=== PATIENT | male | born 1975 | race Two or more races ===

== ENCOUNTER 2016-12-07 13:44 | Emergency (ER) | payer OTHER ==
[~2016-12-07] VITALS: Ht 175.3 cm; Wt 102.1 kg
[2016-12-07 13:52] VITALS: BP 160/111
[2016-12-07] MEDS ORDERED: fentaNYL PF VIAL 100 MCG/2 ML VIAL IV PRN (14:30)
[2016-12-07 14:32] LABS: BASO # 0.1 x10^3/uL (0.0-0.2); BASO % 1 % (0-3); EOS % 0 % (0-3); HEMOGLOBIN 14.6 g/dL (13.0-17.5); LYMPH # 2.2 x10^3/uL (1.0-4.8); LYMPH % 31 % (24-48); MEAN CORPUSCULAR HEMOGLOBIN 31 pg (25-35); MEAN CORPUSCULAR HGB CONC 34 g/dL (31-37); MEAN CORPUSCULAR VOLUME 92 fL (79-100); MONO % 7 % (0-9); NEUT % 62 % (31-73); PLATELET COUNT 232 x10^3/uL (140-400); RED CELL DISTRIBUTION WIDTH 14.4 % (11.5-14.5); WHITE BLOOD COUNT 7.1 x10^3/uL (4.0-11.0)
[2016-12-07 14:34] LABS: BILIRUBIN,URINE NEGATIVE (NEG); GLUCOSE,URINE NEGATIVE (NEG); NITRITE,URINE NEGATIVE (NEG); PROTEIN,URINE NEGATIVE (NEG-TRACE); UROBILINOGEN,URINE 0.2 mg/dL (0.2 mg/dL)
[2016-12-07 14:43] LABS: BACTERIA,URINE 0 /HPF (0-FEW); WBC,URINE 0 /HPF (0-4)
[2016-12-07 14:48] LABS: CALCIUM 9.4 mg/dL (8.5-10.1); CREATININE 1.2 mg/dL (0.7-1.3); GFR 67.4; POTASSIUM 4.1 mmol/L (3.5-5.1)
[2016-12-07 14:54] LABS: ALBUMIN 3.7 g/dL (3.4-5.0); TOTAL BILIRUBIN 0.5 mg/dL (0.2-1.0); TOTAL PROTEIN 7.5 g/dL (6.4-8.2)
[2016-12-07] MEDS ORDERED: IV NORMAL SALINE 1000ML BAG 1,000 ML IV SCH (15:00)
--- NOTE | 2016-12-07 15:02 | RAD ---
Indication: Severe right lower quadrant pain. Axial imaging through the abdomen and pelvis was performed without contrast. Imaging through the lung bases demonstrates linear parenchymal densities in the right lower lobe, likely scarring or atelectasis. The liver and gallbladder are unremarkable. The pancreas and spleen are unremarkable. No adrenal mass is detected. No renal calculi are identified. There is a 3 mm stone in the mid right ureter producing moderate hydroureteronephrosis. No other ureteral calculi are detected. The bladder is decompressed. The aorta is nonaneurysmal. The small and large bowel loops are normal caliber. The appendix is visualized and unremarkable. No free fluid is seen. The prostate is unremarkable. Impression: 3 mm mid right ureteric calculus producing moderate hydroureteronephrosis. No other significant normality is seen. PQRS Compliance Statement: One or more of the following individualized dose reduction techniques were utilized for this examination: 1. Automated exposure control 2. Adjustment of the mA and/or kV according to patient size 3. Use of iterative reconstruction technique
[2016-12-07] MEDS ORDERED: KETOROLAC TROMETHAMINE 30 MG/ML INJ. IV ONE (15:15)
[2016-12-07] MEDS ORDERED: TAMSULOSIN 0.4 MG CAP.ER.24H. PO ONE (15:15)
[2016-12-07] MEDS ORDERED: IBUP-1060 PO (15:36)
[2016-12-07] MEDS ORDERED: HYDR-971 PO (15:36)
[2016-12-07] MEDS ORDERED: TAMS0.4C97 PO (15:36)
--- NOTE | 2016-12-07 15:36 | PHYS DOC ---
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 It is severe. It began suddenly. He did have a kidney stone once before and wonders if it might be a kidney stone. He doesn't remember if it felt like this or not. He's had no blood in his urine. No UTI symptoms. No fever or chills. He took some Tylenol for the pain. At no abdominal surgeries. He did have liposuction in 2013. PCP at [facility] Review of Systems Review of Systems Constitutional: Denies fever or chills [] HENT: Denies nasal congestion or sore throat [] Respiratory: Denies cough or shortness of breath [] Cardiovascular: Denies chest pain GI: As in history of present illness : As in history of present illness Musculoskeletal: Denies back pain or joint pain [] Integument: Denies rash or skin lesions [] Current Medications Current Medications Current Medications Medications (Trade) Dose Ordered Sig/Flora Start Time Stop Time Status Last Admin Dose Admin Fentanyl Citrate (Fentanyl 2ml Vial) 50 mcg PRN Q15MIN PRN 12/07/16 14:30 12/08/16 14:29 Ketorolac Tromethamine (Toradol) 30 mg 1X ONCE 12/07/16 15:15 12/07/16 15:16 DC Sodium Chloride 1,000 ml @ 100 mls/hr Q10H 12/07/16 15:00 12/08/16 00:59 Tamsulosin HCl (Flomax) 0.4 mg 1X ONCE 12/07/16 15:15 12/07/16 15:16 DC Allergies Allergies Allergies Coded Allergies Type Severity Reaction Last Updated Verified No Known Drug Allergies 12/07/16 No Physical Exam Physical Exam Constitutional: Well developed, well nourished, no acute distress, non-toxic appearance. Appears uncomfortable, alert, mentating normally. HENT: Normocephalic, atraumatic, bilateral external ears normal, nose normal. [ ] Eyes: conjunctiva normal, no discharge. [] Neck: Normal range of motion, no stridor. [] Cardiovascular:Heart rate regular rhythm, no murmur [] Lungs & Thorax: Bilateral breath sounds clear to auscultation [] Abdomen: Bowel sounds normal, soft, nondistended, no masses, no pulsatile masses. Tenderness on the right side of the abdomen, not specifically at McBurney's point, but more generally over the entire right lower quadrant. No rebound or guarding Skin: Warm, dry, no erythema, no rash. [] Extremities: No tenderness, no cyanosis, no clubbing, ROM intact, no edema. [] Neurologic: Alert and oriented X 3, normal motor function, normal sensory function, no focal deficits noted. [] Current Patient Data Vital Signs Vital Signs Date Time Temp Pulse Resp B/P (MAP) Pulse Ox O2 Delivery O2 Flow Rate FiO2 12/07/16 13:52 97.8 60 18 160/111 (127) 99 Room Air 97.8 Lab Values Laboratory Tests Test 12/07/16 14:20 White Blood Count 7.1 x10^3/uL (4.0-11.0) Red Blood Count 4.70 x10^6/uL (4.30-5.70) Hemoglobin 14.6 g/dL (13.0-17.5) Hematocrit 43.0 % (39.0-53.0) Mean Corpuscular Volume 92 fL (79-100) Mean Corpuscular Hemoglobin 31 pg (25-35) Mean Corpuscular Hemoglobin Concent 34 g/dL (31-37) Red Cell Distribution Width 14.4 % (11.5-14.5) Platelet Count 232 x10^3/uL (140-400) Neutrophils (%) (Auto) 62 % (31-73) Lymphocytes (%) (Auto) 31 % (24-48) Monocytes (%) (Auto) 7 % (0-9) Eosinophils (%) (Auto) 0 % (0-3) Basophils (%) (Auto) 1 % (0-3) Neutrophils # (Auto) 4.4 x10^3uL (1.8-7.7) Lymphocytes # (Auto) 2.2 x10^3/uL (1.0-4.8) Monocytes # (Auto) 0.5 x10^3/uL (0.0-1.1) Eosinophils # (Auto) 0.0 x10^3/uL (0.0-0.7) Basophils # (Auto) 0.1 x10^3/uL (0.0-0.2) Urine Collection Type Unknown Urine Color Yellow Urine Clarity Clear Urine pH 5.0 Urine Specific [place] 1.020 Urine Protein Negative mg/dL (NEG-TRACE) Urine Glucose (UA) Negative mg/dL (NEG) Urine Ketones (Stick) Negative mg/dL (NEG) Urine Blood Small (NEG) Urine Nitrite Negative (NEG) Urine Bilirubin Negative (NEG) Urine Urobilinogen Dipstick 0.2 mg/dL (0.2 mg/dL) Urine Leukocyte Esterase Negative (NEG) Urine RBC 6-10 /HPF (0-2) Urine WBC 0 /HPF (0-4) Urine Bacteria 0 /HPF (0-FEW) Urine Mucus Mod /LPF Sodium Level 141 mmol/L (136-145) Potassium Level 4.1 mmol/L (3.5-5.1) Chloride Level 108 mmol/L (98-107) H Carbon Dioxide Level 31 mmol/L (21-32) Anion Gap 2 (6-14) L Blood Urea Nitrogen 7 mg/dL (8-26) L Creatinine 1.2 mg/dL (0.7-1.3) Estimated GFR (Cockcroft-Gault) 67.4 BUN/Creatinine Ratio 6 (6-20) Glucose Level 93 mg/dL (70-99) Calcium Level 9.4 mg/dL (8.5-10.1) Total Bilirubin 0.5 mg/dL (0.2-1.0) Aspartate Amino Transferase (AST) 23 U/L (15-37) Alanine Aminotransferase (ALT) 25 U/L (16-63) Alkaline Phosphatase 73 U/L (46-116) Total Protein 7.5 g/dL (6.4-8.2) Albumin 3.7 g/dL (3.4-5.0) Albumin/Globulin Ratio 1.0 (1.0-1.7) Lipase 66 U/L (73-393) L Laboratory Tests 12/07/16 14:20 Laboratory Tests 12/07/16 14:20 EKG EKG [] Radiology/Procedures Radiology/Procedures CT scan of the abdomen and pelvis read by the radiologist. 3 mm mid right ureter calculus with moderate [place]. [] Course & Med Decision Making Course & Med Decision Making Pertinent Labs and Imaging studies reviewed. (See chart for details) 41-year-old male with a history of one kidney stone that passed by itself in the past, comes in with a 3 mm right ureter stone with ureteral colic and hydro- . His pain was easily controlled in the ED. Based on him passing a stone previously I suspect he will be able to pass this. The patient is comfortable with discharge home. See instructions for plan. He was sent home with a urine strainer. [] Dragon Disclaimer Dragon Disclaimer This electronic medical record was generated, in whole or in part, using a voice recognition dictation system. Departure Departure Impression: Primary Impression: Right kidney stone Disposition: HOME, SELF-CARE Condition: STABLE Referrals: NO PCP (PCP) Patient Instructions: Kidney Stones, [place]-Pary Additional Instructions: As we discussed, CT scan shows that you have a 3 mm kidney stone in the right ureter. This most likely will pass on its own, if it has not passed in 5-7 days , make a follow-up appointment in urology clinic. Strain your urine to see when it passes. To relax the smooth muscle of the ureter, I have prescribed Flomax. You had your first dose here in the emergency department. Take at bed time each day starting tomorrow night until the stone passes. Ibuprofen 800 mg every 8 hours which also relaxes the smooth muscle of the ureter. Your next dose of that is due at 6 PM Plenty of fluids. If needed, for severe pain, hydrocodone as prescribed. This is an opiate, not while working or driving. Scripts Hydrocodone/Apap 5-325 (NORCO 5-325 TABLET) 1 Each Tablet 1-2 TAB PO Q4-6HRS for kidney stone pain, #15 TAB Prov: JOSE CHOWDHURY MD 12/07/16 Ibuprofen (IBUPROFEN) 800 Mg Tablet 800 MG PO Q8HRS Y for kidney stone for 10 Days, #30 TAB Prov: JOSE CHOWDHURY MD 12/07/16 Tamsulosin Hcl (FLOMAX) 0.4 Mg Cap.er.24h 1 CAP PO DAILY for kidney stone for 14 Days, #14 CAP 11 Refills Prov: JOSE CHOWDHURY MD 12/07/16 JOSE CHOWDHURY MD Dec 07, 2016 15:36
== END 2016-12-07 16:13 | disposition home or self-care (01) ==
LOC: ER 13:44
DX: N13.2 Hydronephrosis with renal and ureteral calculous obstruction (principal); I10 Essential (primary) hypertension
CPT/HCPCS: 36415; 74176; 80053; 81001; 83690; 85027; 96361; 96374; 96375; 99285; J1885; J3010; J7030